=== PATIENT | female | born 1965 | race Caucasian/White ===

== ENCOUNTER 2023-02-13 11:30 | Inpatient (IN) | payer OTHER ==
[~2023-02-13] VITALS: Ht 152.4 cm; Wt 80.7 kg
[2023-02-13] MEDS ORDERED: LORAZEPAM1 MG PO (13:40)
[2023-02-13] MEDS ORDERED: HORIZANT300 MG PO (13:41)
[2023-02-13] MEDS ORDERED: ATORVASTATIN CA20 MG PO (13:41)
[2023-02-13] MEDS ORDERED: GLUMETZA500 MG PO (13:41)
[2023-02-13] MEDS ORDERED: FOLIC ACID1 MG PO (13:42)
[2023-02-13] MEDS ORDERED: ZESTRIL10 M1 PO (13:42)
[2023-02-13] MEDS ORDERED: VITAMIN D PO (13:43)
[2023-02-13] MEDS ORDERED: CALTRATE 600+D1 EAC1 PO (13:44)
[2023-02-13] MEDS ORDERED: MAGNE PO (13:44)
[2023-02-13] MEDS ORDERED: MAGNESIUM250 M2 PO (13:45)
[2023-02-28] MEDS ORDERED: PERCOCET 5-3251 EACH PO (13:34)
[2023-02-28] MEDS ORDERED: MEDROLPACK PO (13:35)
[2023-02-28] MEDS ORDERED: AMOX-CLAV 875-1 EACH PO (13:35)
[2023-02-28] MEDS ORDERED: COLACE100 MG PO (13:35)
[2023-02-28] MEDS ORDERED: GABAPENTIN100 M2 PO (13:35)
[2023-02-28] MEDS ORDERED: NEURONTIN800 MG PO (13:38)
[2023-03-01 06:24] LABS: HEMATOCRIT 34.2 % (36.0-45.00); HEMOGLOBIN 11.4 g/dL (12.0-15.00); MEAN CELL VOLUME 92.7 fL (80.00-100.00); MEAN CORPUSCULAR HEMOGLOBIN 30.9 pg (27.00-32.0); MEAN CORPUSCULAR HGB CONC 33.4 g/dl (32.0-36.0); PLATELET COUNT 158 K/uL (150-450); RED BLOOD COUNT 3.69 M/uL (4.00-6.00); RED CELL DISTRIBUTION WIDTH 13.9 % (11.5-14.5)
[2023-03-01 07:02] LABS: CALCIUM 8.6 mg/dL (8.5-10.1); CREATININE SERUM 0.73 mg/dL (0.55-1.02); GFR 81.88; POTASSIUM 3.98 mEq/L (3.5-5.1)
[2023-03-03 06:43] LABS: CREATININE SERUM 0.45 mg/dL (0.55-1.02); GFR 143.1; MEAN CELL VOLUME 93.8 fL (80.00-100.00); MEAN CORPUSCULAR HGB CONC 34.1 g/dl (32.0-36.0); PLATELET COUNT 134 K/uL (150-450); POTASSIUM 3.97 mEq/L (3.5-5.1); RED CELL DISTRIBUTION WIDTH 13.7 % (11.5-14.5)
[2023-03-03 06:44] LABS: HEMATOCRIT 23.4 % (36.0-45.00)
[2023-03-04 12:10] LABS: HEMATOCRIT 26.1 % (36.0-45.00); MEAN CELL VOLUME 92.8 fL (80.00-100.00); MEAN CORPUSCULAR HGB CONC 33.8 g/dl (32.0-36.0); PLATELET COUNT 139 K/uL (150-450); RED BLOOD COUNT 2.81 M/uL (4.00-6.00); RED CELL DISTRIBUTION WIDTH 13.9 % (11.5-14.5)
[2023-03-04 12:12] LABS: HEMOGLOBIN 8.8 g/dL (12.0-15.00); MEAN CORPUSCULAR HEMOGLOBIN 31.3 pg (27.00-32.0)
== END 2023-03-04 20:39 | DRG 455 ==
LOC: O/R 02-28 06:50 → SURG 02-28 06:50 → SURH 02-28 11:29 → SURG 02-28 22:02 → SURH 03-04 14:57
PROVIDERS: ADMIT Orthopaedic Surgery Orthopaedic Surgery of the Spine; ATTEND Orthopaedic Surgery Orthopaedic Surgery of the Spine
PROC: 0SG3071 Fusion of Lumbosacral Joint with Autologous Tissue Substitute, Posterior Approach, Posterior Column, Open Approach (ICD-10-PCS; 2023-02-28)
PROC: 0ST40ZZ Resection of Lumbosacral Disc, Open Approach (ICD-10-PCS; 2023-02-28)
PROC: 0QB30ZZ Excision of Left Pelvic Bone, Open Approach (ICD-10-PCS; 2023-02-28)
PROC: 07DR0ZZ Extraction of Iliac Bone Marrow, Open Approach (ICD-10-PCS; 2023-02-28)
PROC: 4A1104G Monitoring of Peripheral Nervous Electrical Activity, Intraoperative, Open Approach (ICD-10-PCS; 2023-02-28)
PROC: 0SG30AJ Fusion of Lumbosacral Joint with Interbody Fusion Device, Posterior Approach, Anterior Column, Open Approach (ICD-10-PCS; principal; 2023-02-28 17:15)
DX: M48.07 Spinal stenosis, lumbosacral region (principal); M43.17 Spondylolisthesis, lumbosacral region; M54.17 Radiculopathy, lumbosacral region